=== PATIENT | male | born 1965 ===

== ENCOUNTER 2024-09-25 01:33 | Emergency (ER) | payer OTHER ==
--- OUTSIDE RECORDS SUMMARY | 2024-09-25 01:38 | XMS REPORT | Continuity of Care Document ---
Author Name Unknown Address [address] [address] [address] [place] [address] Organization [facility] [place] Address [address] [facility] [address] [place] [address] Care Team Providers Care Sensor Technician Name Role Phone Rolando Joyner Attending Clinician Unavailable Danuta Landrum Attending Clinician Unavailable Alexandra Gustafson Attending Clinician Unavailable Payers Payer Name Policy Type Policy Number Effective Date Expirati on Date Source [employer] 53 [id number] 2019 00:00:00 [facility] Problems Condition Name Condition Details Condition Category Status Onset Date Resolution Date Last Treatment Date Treating Clinician Comments Source [id number] Body mass index [BMI] 35.0-35.9, adult Problem [facility] [id number] Morbid (severe) obesity due to excess calories Problem [facility] Polyp colon Colon polyp Problem [facility] Fatigue Fatigue Problem [facility] Obese Obese Problem [facility] History of polyp of colon H/O adenomatou s polyp of colon Problem [facility] [id number] Type 2 diabetes mellitus with hyperglyce steven, without long-term current use of insulin Problem [facility] Essential hypertensi on Essential hypertensi on Problem [facility] [id number] Tinnitus of both ears Problem [facility] [id number] Post herpetic neuralgia Problem [facility] [id number] Erectile dysfunctio n, unspecifie d erectile dysfunctio n type Problem [facility] [id number] BPH loc w urin obs/LUTS Problem [facility] [id number] Primary osteoarthr itis of left shoulder Problem [facility] [id number] Mixed hyperlipid emia Problem [facility] [id number] Degenerati ve disc disease, lumbar Problem [facility] [id number] Other chronic pain Problem [facility] Elevated PSA Elevated PSA Problem [facility] [id number] Incomplete emptying of bladder Problem [facility] [id number] Bilateral low back pain with right-side d sciatica, unspecifie d chronicity Problem [facility] [id number] Primary osteoarthr itis of right shoulder Problem [facility] Social History Social Habit Start Date Stop Date Quantity Comments Source History of Tobacco Use [facility] Sex Assigned At [facility] Smoking Status Start Date Stop Date Source Never Smoker [facility] Medications Ordered Medication Name Filled Medication Name Start Date Stop Date Current Medication? Ordering Clinician Indication Dosage Frequency Signature (SIG) Comments Components Source Flomax 0.4 MG Flomax 0.4 MG 07-31 00:00: 00 07-26 00:00 :00 No 2{capsu les} QD Flomax 0.4 MG Kenalog (Triamcinol one) Kenalog (Triamcinol one) 2020-06 007 00:00: 00 No 40mg [facility] Lisinopril 20 MG Lisinopril 20 MG No 1{table t} QD Lisinopril 20 MG Gabapentin 300 MG Gabapentin 300 MG No 1{capsu le} BID Gabapentin 300 MG Meloxicam 7.5 MG Meloxicam 7.5 MG No QD Meloxicam 7.5 MG Multivitami n - Multivitami n - No 1{table t} QD Multivitam in - Immunizations Ordered Immunization Name Filled Immunization Name Date Status Comments Source Kenalog (Triamcinolone) Kenalog (Triamcinolone) 2021-03-07 10:10:00 Completed [facility] Afluria Afluria 2021-02-22 11:13:00 Completed [facility] Afluria Afluria 2021-02-22 11:13:00 Completed [facility] Afluria Afluria 2021-02-22 11:13:00 Completed [facility] Afluria Afluria 2021-02-22 11:13:00 Completed [facility] Shingrix Shingrix 2020-05-17 16:48:00 Completed [facility] Shingrix Shingrix 2020-05-17 16:48:00 Completed [facility] Shingrix Shingrix 2020-05-17 16:48:00 Completed [facility] Shingrix Shingrix 2020-05-17 16:48:00 Completed [facility] Shingrix Shingrix 2020-02-28 11:36:00 Completed [facility] Shingrix Shingrix 2020-02-28 11:36:00 Completed [facility] Shingrix Shingrix 2020-02-28 11:36:00 Completed [facility] Shingrix Shingrix 2020-02-28 11:36:00 Completed [facility] Fluarix (IIV4) - SDS - 0.5mL Fluarix (IIV4) - SDS - 0.5mL 2020-02-28 11:35:00 Completed [facility] Afluria single dose Afluria single dose 11:35:00 Completed [facility] Afluria single dose Afluria single dose 11:35:00 Completed [facility] Afluria single dose Afluria single dose 11:35:00 Completed [facility] Afluria single dose Afluria single dose Unknown Completed [facility] Shingrix Shingrix Unknown Completed [facility] Afluria Afluria Unknown Completed [facility] Afluria (IIV4) - 3 years and older - SDS - 0.5mL Afluria (IIV4) - 3 years and older - SDS - 0.5mL Unknown Completed [facility] Shingrix Shingrix Unknown Completed [facility] Afluria Afluria Unknown Completed [facility] Afluria (IIV4) - 3 years and older - SDS - 0.5mL Afluria (IIV4) - 3 years and older - SDS - 0.5mL Unknown Completed [facility] Shingrix Shingrix Unknown Completed [facility] Afluria Afluria Unknown Completed [facility] Afluria (IIV4) - 3 years and older - SDS - 0.5mL Afluria (IIV4) - 3 years and older - SDS - 0.5mL Unknown Completed [facility] Shingrix Shingrix Unknown Completed [facility] Afluria Afluria Unknown Completed [facility] Boostrix (Tdap) Boostrix (Tdap) Unknown Completed [facility] Vital Signs Vital Name Observation Time Observation Value Comments S ource height 2024-06-29 10:00:00 67.25 [in_i] Com mon [facility] weight 2024-06-29 10:00:00 232.4 [lb_av] Co mmon [facility] temperature 2024-06-29 10:00:00 97.2 [degF] Com [facility] bmi 2024-06-29 10:00:00 36.12 kg/m2 Comm on [facility] oximetry 2024-06-29 10:00:00 96 % Commo n [facility] respiratory rate 2024-06-29 10:00:00 16 /min [facility] blood pressure systolic 2024-06-29 10:00:00 130 mm[Hg] Common [facility] blood pressure diastolic 2024-06-29 10:00:00 88 mm[Hg] [facility] height 2024-03-11 09:45:00 67.25 [in_i] Com [facility] weight 2024-03-11 09:45:00 228.4 [lb_av] Co [facility] temperature 2024-03-11 09:45:00 98 [degF] Comm on [facility] bmi 2024-03-11 09:45:00 35.5 kg/m2 Commo n [facility] oximetry 2024-03-11 09:45:00 94 % Commo n [facility] blood pressure systolic 2024-03-11 09:45:00 132 mm[Hg] Common [facility] blood pressure diastolic 2024-03-11 09:45:00 76 mm[Hg] [facility] height 2024-03-11 09:45:00 67.25 [in_i] Com [facility] weight 2024-03-11 09:45:00 228.4 [lb_av] Co [facility] temperature 2024-03-11 09:45:00 98 [degF] Comm on [facility] bmi 2024-03-11 09:45:00 35.5 kg/m2 Commo n [facility] oximetry 2024-03-11 09:45:00 94 % Commo n [facility] blood pressure systolic 2024-03-11 09:45:00 132 mm[Hg] [facility] blood pressure diastolic 2024-03-11 09:45:00 76 mm[Hg] [facility] height 2023-09-10 08:10:00 67.25 [in_i] Com [facility] weight 2023-09-10 08:10:00 231 [lb_av] Comm on [facility] temperature 2023-09-10 08:10:00 97.9 [degF] Com [facility] bmi 2023-09-10 08:10:00 35.91 kg/m2 Comm on [facility] oximetry 2023-09-10 08:10:00 95 % Commo n [facility] blood pressure systolic 2023-09-10 08:10:00 134 mm[Hg] [facility] blood pressure diastolic 2023-09-10 08:10:00 76 mm[Hg] [facility] height 2023-06-05 08:20:00 67.25 [in_i] Com [facility] weight 2023-06-05 08:20:00 231.0 [lb_av] Co [facility] temperature 2023-06-05 08:20:00 97.9 [degF] Com [facility] bmi 2023-06-05 08:20:00 35.91 kg/m2 Comm on [facility] oximetry 2023-06-05 08:20:00 96 % Commo n [facility] respiratory rate 2023-06-05 08:20:00 17 /min [facility] blood pressure systolic 2023-06-05 08:20:00 120 mm[Hg] [facility] blood pressure diastolic 2023-06-05 08:20:00 76 mm[Hg] [facility] height 2023-03-05 09:00:00 67.25 [in_i] Com [facility] weight 2023-03-05 09:00:00 231.0 [lb_av] Co [facility] temperature 2023-03-05 09:00:00 97.2 [degF] Com [facility] bmi 2023-03-05 09:00:00 35.91 kg/m2 Comm on [facility] oximetry 2023-03-05 09:00:00 97 % Commo n [facility] respiratory rate 2023-03-05 09:00:00 18 /min Common [facility] blood pressure systolic 2023-03-05 09:00:00 119 mm[Hg] [facility] blood pressure diastolic 2023-03-05 09:00:00 73 mm[Hg] [facility] height 2022-12-09 11:00:00 67.25 [in_i] Com [facility] weight 2022-12-09 11:00:00 228.4 [lb_av] Co mmon [facility] temperature 2022-12-09 11:00:00 97.7 [degF] Com [facility] bmi 2022-12-09 11:00:00 35.5 kg/m2 Commo n [facility] oximetry 2022-12-09 11:00:00 97 % Commo n [facility] respiratory rate 2022-12-09 11:00:00 18 /min [facility] blood pressure systolic 2022-12-09 11:00:00 125 mm[Hg] [facility] blood pressure diastolic 2022-12-09 11:00:00 86 mm[Hg] Common [facility] height 2022-01-31 13:20:00 67.25 [in_i] Com [facility] weight 2022-01-31 13:20:00 226 [lb_av] Comm on [facility] temperature 2022-01-31 13:20:00 97.7 [degF] Com [facility] bmi 2022-01-31 13:20:00 35.13 kg/m2 Comm on [facility] oximetry 2022-01-31 13:20:00 96 % Commo n [facility] respiratory rate 2022-01-31 13:20:00 15 /min Common [facility] blood pressure systolic 2022-01-31 13:20:00 128 mm[Hg] Common [facility] blood pressure diastolic 2022-01-31 13:20:00 80 mm[Hg] [facility] height 2021-11-01 16:20:00 67 [in_i] Commo n [facility] weight 2021-11-01 16:20:00 222.4 [lb_av] Co mmon [facility] temperature 2021-11-01 16:20:00 97.6 [degF] Com mon [facility] bmi 2021-11-01 16:20:00 34.83 kg/m2 Comm on [facility] oximetry 2021-11-01 16:20:00 97 % Commo n [facility] respiratory rate 2021-11-01 16:20:00 15 /min Common [facility] blood pressure systolic 2021-11-01 16:20:00 128 mm[Hg] [facility] blood pressure diastolic 2021-11-01 16:20:00 80 mm[Hg] [facility] height 2021-07-31 08:30:00 67 [in_i] Commo n [facility] weight 2021-07-31 08:30:00 227.6 [lb_av] Co mmon [facility] temperature 2021-07-31 08:30:00 97.6 [degF] Com mon [facility] bmi 2021-07-31 08:30:00 35.64 kg/m2 Comm on [facility] oximetry 2021-07-31 08:30:00 97 % Commo n [facility] respiratory rate 2021-07-31 08:30:00 18 /min [facility] blood pressure systolic 2021-07-31 08:30:00 135 mm[Hg] [facility] blood pressure diastolic 2021-07-31 08:30:00 87 mm[Hg] Common [facility] height 2021-05-21 11:20:00 67 [in_i] Commo n [facility] weight 2021-05-21 11:20:00 231 [lb_av] Comm on [facility] temperature 2021-05-21 11:20:00 97.7 [degF] Com mon [facility] bmi 2021-05-21 11:20:00 36.18 kg/m2 Comm on [facility] oximetry 2021-05-21 11:20:00 99 % Commo n [facility] blood pressure systolic 2021-05-21 11:20:00 128 mm[Hg] Common [facility] blood pressure diastolic 2021-05-21 11:20:00 88 mm[Hg] Common [facility] height 2021-03-25 08:00:00 67 [in_i] Commo n [facility] weight 2021-03-25 08:00:00 227 [lb_av] Comm on [facility] bmi 2021-03-25 08:00:00 35.55 kg/m2 Comm on [facility] blood pressure systolic 2021-03-25 08:00:00 110 mm[Hg] Common [facility] blood pressure diastolic 2021-03-25 08:00:00 74 mm[Hg] [facility] bmi 2021-03-07 09:40:00 35.64 kg/m2 Comm on [facility] oximetry 2021-03-07 09:40:00 99 % Commo n [facility] respiratory rate 2021-03-07 09:40:00 15 /min Common [facility] blood pressure systolic 2021-03-07 09:40:00 119 mm[Hg] [facility] blood pressure diastolic 2021-03-07 09:40:00 73 mm[Hg] [facility] height 2021-03-07 09:40:00 67 [in_i] Commo n [facility] weight 2021-03-07 09:40:00 227.6 [lb_av] Co mmon [facility] temperature 2021-03-07 09:40:00 97.3 [degF] Com mon [facility] height 2021-02-22 09:40:00 67 [in_i] Commo n [facility] weight 2021-02-22 09:40:00 237 [lb_av] Comm on [facility] temperature 2021-02-22 09:40:00 97.8 [degF] Com mon [facility] bmi 2021-02-22 09:40:00 37.12 kg/m2 Comm on [facility] oximetry 2021-02-22 09:40:00 97 % Commo n [facility] respiratory rate 2021-02-22 09:40:00 16 /min [facility] blood pressure systolic 2021-02-22 09:40:00 121 mm[Hg] Common [facility] blood pressure diastolic 2021-02-22 09:40:00 73 mm[Hg] [facility] Encounters Start Date/Time End Date/Time Encounter Type Admission Type Attending [facility] Care Facility Care Department Encounter ID Source 2024-03-09 10:24:00 [facility] [id number] [facility] 2023-03-04 12:37:00 [facility] [id number] [facility] 2022-12-01 15:27:00 [facility] [id number] [facility] 2022-11-04 17:05:00 [facility] [id number] [facility] 2022-05-15 08:31:00 Outpatient Gustafson, Na [facility] [id number] [facility] 2022-01-29 10:11:00 Outpatient Gustafson, Na [facility] [id number] [facility] 2021-10-30 09:36:00 Outpatient Gustafson, Na [facility] [id number] [facility] 2021-06-26 14:03:02 Outpatient Gustafson, Na [facility] [id number] [facility] 2021-06-26 13:54:41 Outpatient Gustafson, Na [facility] [id number] [facility] 2021-06-26 13:53:18 Outpatient Gustafson, Na [facility] [id number] [facility] 2021-06-26 13:18:04 Outpatient Gustafson, Na [facility] [id number] [facility] 2021-06-26 13:05:26 Outpatient Gustafson, Na [facility] [id number] [facility] 2021-06-26 12:17:19 Outpatient Gustafson, Na [facility] [id number] [facility] 2021-06-26 12:14:45 Outpatient Gustafson, Na [facility] [id number] [facility] 2021-06-26 11:49:10 Outpatient Gustafson, Na [facility] [id number] [facility] 2021-06-26 11:12:29 Outpatient Gustafson, Na [facility] [id number] [facility] 2021-06-26 11:07:49 Outpatient Gustafson, Na [facility] [id number] [facility] 2024-06-29 00:00:00 2024-06-29 00:00:00 (WELLNESS) Wellness Visit [facility] [id number] [facility] 2024-03-11 00:00:00 2024-03-11 00:00:00 OFFICE VISIT ESTAB PT LEVEL 4 [facility] [id number] [facility] 2023-09-10 00:00:00 2023-09-10 00:00:00 OFFICE VISIT ESTAB PT LEVEL 4 [facility] [id number] [facility] 2023-06-05 00:00:00 2023-06-05 00:00:00 PREV VISIT EST AGE 40-64 [facility] [id number] [facility] 2023-03-05 00:00:00 2023-03-05 00:00:00 OFFICE VISIT ESTAB PT LEVEL 4 [facility] [id number] [facility] 2022-12-09 00:00:00 2022-12-09 00:00:00 OFFICE VISIT ESTAB PT LEVEL 4 [facility] [id number] [facility] 2022-11-04 00:00:00 2022-11-04 00:00:00 (TEL) [facility] [id number] [facility] 2022-05-19 00:00:00 2022-05-19 00:00:00 OFFICE VISIT ESTAB PT LEVEL 4 [facility] [id number] [facility] 2022-01-31 00:00:00 2022-01-31 00:00:00 OFFICE VISIT ESTAB PT LEVEL 4 [facility] [id number] [facility] 2021-11-01 00:00:00 2021-11-01 00:00:00 OFFICE VISIT ESTAB PT LEVEL 4 [facility] [id number] [facility] 2021-10-16 00:00:00 2021-10-16 00:00:00 (TEL) [facility] [id number] [facility] 2021-07-31 00:00:00 2021-07-31 00:00:00 OFFICE VISIT EST PT LEVEL 3 [facility] [id number] [facility] 2021-07-25 00:00:00 2021-07-25 00:00:00 (TEL) [facility] [id number] [facility] 2021-06-18 00:00:00 2021-06-18 00:00:00 (TEL) [facility] [id number] [facility] 2021-05-21 00:00:00 2021-05-21 00:00:00 OFFICE VISIT ESTAB PT LEVEL 4 [facility] [id number] [facility] 2021-04-03 00:00:00 2021-04-03 00:00:00 (TEL) [facility] [id number] [facility] 2021-03-25 00:00:00 2021-03-25 00:00:00 CONSULT - OFFICE, L4 [facility] [id number] [facility] 2021-03-07 00:00:00 2021-03-07 00:00:00 OFFICE VISIT EST PT LEVEL 3 [facility] [id number] [facility] 2021-02-22 00:00:00 2021-02-22 00:00:00 OFFICE VISIT ESTAB PT LEVEL 4 [facility] [id number] [facility] 2020-11-22 00:00:00 2020-11-22 00:00:00 Outpatient [facility] [id number] [facility] 2020-08-16 00:00:00 2020-08-16 00:00:00 Outpatient [facility] [id number] [facility] 2020-07-30 00:00:00 2020-07-30 00:00:00 Outpatient [facility] [id number] [facility] 2020-06-04 00:00:00 2020-06-04 00:00:00 Outpatient [facility] [id number] [facility] 2020-05-17 00:00:00 2020-05-17 00:00:00 Outpatient [facility] [id number] [facility] 2020-04-01 00:00:00 2020-04-01 00:00:00 Outpatient [facility] [id number] [facility] 2020-02-28 00:00:00 2020-02-28 00:00:00 Outpatient [facility] [id number] [facility] 2020-02-15 00:00:00 2020-02-15 00:00:00 Outpatient [facility] [id number] [facility] 2019-08-08 15:26:00 2019-08-08 15:26:00 Outpatient [facility] [id number] [facility] 2019-08-05 15:20:00 2019-08-05 15:20:00 Outpatient [facility] [id number] [facility] Results Test Description Test Time Test Comments Results Result Co mments Source COMPREHENSIVE METABOLIC [id number] 00:00:00* Test Item Value Reference Range Interpretation Comme nts HEMOGLOBIN A1c (test code = 4548-4) 6.3 % See_Comment H [Automated [employer]] The system which generated this result transmitted reference range: 4.2-5.6 %. The reference range was not used to interpret this result as normal/abnormal. NUCLEATED RBCS (test code = 94247-8) 0.0 /100 WBC'S See_Comment [Automated message] The system which generated this result transmitted reference range: 0.0 /100 WBC'S. The reference range was not used to interpret this result as normal/abnormal. ABSOLUTE EOSINOPHILS (test code = 29132-7) 0.59 K/UL See_Comment H [Automated message] The system which generated this result transmitted reference range: 0.00-0.50 K/UL. The reference range was not used to interpret this result as normal/abnormal. ABSOLUTE LYMPHOCYTES (test code = 49769-1) 1.52 K/UL See_Comment [Automated message] The system which generated this result transmitted reference range: 1.00-4.00 K/UL. The reference range was not used to interpret this result as normal/abnormal. ABSOLUTE MONOCYTES (test code = 41165-9) 0.56 K/UL See_Comment [Automated message] The system which generated this result transmitted reference range: 0.20-1.00 K/UL. The reference range was not used to interpret this result as normal/abnormal. ABSOLUTE NEUTROPHILS (test code = 32500-4) 2.99 K/UL See_Comment [Automated message] The system which generated this result transmitted reference range: 1.50-7.50 K/UL. The reference range was not used to interpret this result as normal/abnormal. BASOPHILS (test code = 50025-7) 0.9 % EOSINOPHILS (test code = 22438-0) 10.3 % HEMATOCRIT (test code = 71979-6) 45.6 % See_Comment [Automated messa ge] The system which generated this result transmitted reference range: 40.0-51.0 %. The reference range was not used to interpret this result as normal/abnormal. HEMOGLOBIN (test code = 718-7) 15.4 G/DL See_Comment [Automated messa ge] The system which generated this result transmitted reference range: 13.5-17.0 G/DL. The reference range was not used to interpret this result as normal/abnormal. LYMPHOCYTES (test code = 31103-2) 26.6 % MCH (test code = 47237-9) 32.8 PG See_Comment [Automated messa ge] The system which generated this result transmitted reference range: 25.0-33.0 PG. The reference range was not used to interpret this result as normal/abnormal. MCHC (test code = 47334-0) 33.8 G/DL See_Comment [Automated messa ge] The system which generated this result transmitted reference range: 31.0-36.0 G/DL. The reference range was not used to interpret this result as normal/abnormal. MCV (test code = 31130-2) 97.0 fL See_Comment [Automated messa ge] The system which generated this result transmitted reference range: 80.0-99.0 fL. The reference range was not used to interpret this result as normal/abnormal. MONOCYTES (test code = 67254-6) 9.8 % NEUTROPHILS (test code = 56511-2) 52.2 % PLATELET COUNT (test code = 66541-7) 240 K/UL See_Comment [Automated PeopleDoca ge] The system which generated this result transmitted reference range: 130-400 K/UL. The reference range was not used to interpret this result as normal/abnormal. RBC (test code = 40248-4) 4.70 M/UL See_Comment [Automated PeopleDoca ge] The system which generated this result transmitted reference range: 4.50-6.10 M/UL. The reference range was not used to interpret this result as normal/abnormal. RDW (test code = 34677-6) 12.3 % See_Comment [Automated PeopleDoca ge] The system which generated this result transmitted reference range: 11.5-15.0 %. The reference range was not used to interpret this result as normal/abnormal. WBC (test code = 39186-9) 5.7 K/UL See_Comment [Automated PeopleDoca ge] The system which generated this result transmitted reference range: 3.5-11.0 K/UL. The reference range was not used to interpret this result as normal/abnormal. CALC LDL CHOL (test code = 40477-1) 127 MG/DL See_Comment H [Automated PeopleDoca ge] The system which generated this result transmitted reference range: <100 MG/DL. The reference range was not used to interpret this result as normal/abnormal. CHOLESTEROL (test code = 2093-3) 191 MG/DL See_Comment [Automated PeopleDoca ge] The system which generated this result transmitted reference range: <200 MG/DL. The reference range was not used to interpret this result as normal/abnormal. HDL CHOLESTEROL (test code = 2085-9) 42 MG/DL See_Comment [Automated PeopleDoca ge] The system which generated this result transmitted reference range: >39 MG/DL. The reference range was not used to interpret this result as normal/abnormal. RISK RATIO LDL/HDL (test code = 15495-7) 3.02 RATIO See_Comment [Automated message] The system which generated this result transmitted reference range: <3.55 RATIO. The reference range was not used to interpret this result as normal/abnormal. TRIGLYCERIDES (test code = 2571-8) 111 MG/DL See_Comment [Automated messa ge] The system which generated this result transmitted reference range: <150 MG/DL. The reference range was not used to interpret this result as normal/abnormal. ALBUMIN (test code = 1751-7) 4.4 G/DL See_Comment [Automated messa ge] The system which generated this result transmitted reference range: 3.5-5.2 G/DL. The reference range was not used to interpret this result as normal/abnormal. ALKALINE PHOSPHATASE (test code = 6768-6) 78 U/L See_Comment [Automated message] The system which generated this result transmitted reference range: 40-123 U/L. The reference range was not used to interpret this result as normal/abnormal. BILIRUBIN, TOTAL (test code = 1975-2) 0.6 MG/DL See_Comment [Automated messa ge] The system which generated this result transmitted reference range: <=1.2 MG/DL. The reference range was not used to interpret this result as normal/abnormal. BUN (test code = 3094-0) 13 MG/DL See_Comment [Automated messa ge] The system which generated this result transmitted reference range: 6-20 MG/DL. The reference range was not used to interpret this result as normal/abnormal. CALCIUM (test code = 61675-8) 9.4 MG/DL See_Comment [Automated messa ge] The system which generated this result transmitted reference range: 8.5-10.5 MG/DL. The reference range was not used to interpret this result as normal/abnormal. CALC A/G RATIO (test code = 1759-0) 1.6 RATIO See_Comment [Automated messa ge] The system which generated this result transmitted reference range: 1.0-2.6 RATIO. The reference range was not used to interpret this result as normal/abnormal. CALC BUN/CREAT (test code = 3097-3) 12 RATIO See_Comment [Automated messa ge] The system which generated this result transmitted reference range: 6-28 RATIO. The reference range was not used to interpret this result as normal/abnormal. CALC GLOBULIN (test code = 15511-7) 2.8 G/DL See_Comment [Automated messa ge] The system which generated this result transmitted reference range: 1.9-3.7 G/DL. The reference range was not used to interpret this result as normal/abnormal. CARBON DIOXIDE (test code = 1962-8) 27 MEQ/L See_Comment [Automated messa ge] The system which generated this result transmitted reference range: 19-31 MEQ/L. The reference range was not used to interpret this result as normal/abnormal. CHLORIDE (test code = 5-0) 102 MEQ/L See_Comment [Automated messa ge] The system which generated this result transmitted reference range: 95-107 MEQ/L. The reference range was not used to interpret this result as normal/abnormal. CREATININE (test code = 2160-0) 1.08 MG/DL See_Comment [Automated messa ge] The system which generated this result transmitted reference range: 0.80-1.40 MG/DL. The reference range was not used to interpret this result as normal/abnormal. eGFR (2020 CKD-EPI) (test code = 67956-1) 80 ML/MIN/1.73 See_Comment [Automated message] The system which generated this result transmitted reference range: >60 ML/MIN/1.73. The reference range was not used to interpret this result as normal/abnormal. GLUCOSE (test code = 1558-6) 104 MG/DL See_Comment H [Automated messa ge] The system which generated this result transmitted reference range: 70-99 MG/DL. The reference range was not used to interpret this result as normal/abnormal. POTASSIUM (test code = 2823-3) 4.4 MEQ/L See_Comment [Automated messa ge] The system which generated this result transmitted reference range: 3.5-5.4 MEQ/L. The reference range was not used to interpret this result as normal/abnormal. PROTEIN, TOTAL (test code = 2885-2) 7.2 G/DL See_Comment [Automated messa ge] The system which generated this result transmitted reference range: 6.1-8.3 G/DL. The reference range was not used to interpret this result as normal/abnormal. AST (test code = 1920-8) 15 U/L See_Comment [Automated messa ge] The system which generated this result transmitted reference range: 9-50 U/L. The reference range was not used to interpret this result as normal/abnormal. ALT (test code = 1742-6) 19 U/L See_Comment [Automated messa ge] The system which generated this result transmitted reference range: 5-50 U/L. The reference range was not used to interpret this result as normal/abnormal. SODIUM (test code = 2951-2) 138 MEQ/L See_Comment [Automated messa ge] The system which generated this result transmitted reference range: 133-146 MEQ/L. The reference range was not used to interpret this result as normal/abnormal. CBC W/AUTO [id number] 00:00:00* Test Item Value Reference Range Interpretation Comme nts NUCLEATED RBCS (test code = 11546-6) 0.0 /100 WBC'S See_Comment [Automated messa ge] The system which generated this result transmitted reference range: 0.0 /100 WBC'S. The reference range was not used to interpret this result as normal/abnormal. ABSOLUTE EOSINOPHILS (test code = 20136-5) 0.34 K/UL See_Comment [Automated messa ge] The system which generated this result transmitted reference range: 0.00-0.50 K/UL. The reference range was not used to interpret this result as normal/abnormal. ABSOLUTE LYMPHOCYTES (test code = 09526-7) 1.41 K/UL See_Comment [Automated messa ge] The system which generated this result transmitted reference range: 1.00-4.00 K/UL. The reference range was not used to interpret this result as normal/abnormal. ABSOLUTE MONOCYTES (test code = 98129-9) 0.60 K/UL See_Comment [Automated messa ge] The system which generated this result transmitted reference range: 0.20-1.00 K/UL. The reference range was not used to interpret this result as normal/abnormal. ABSOLUTE NEUTROPHILS (test code = 37385-8) 2.39 K/UL See_Comment [Automated messa ge] The system which generated this result transmitted reference range: 1.50-7.50 K/UL. The reference range was not used to interpret this result as normal/abnormal. BASOPHILS (test code = 74355-7) 1.2 % EOSINOPHILS (test code = 48672-2) 7.0 % HEMATOCRIT (test code = 98536-4) 45.9 % See_Comment [Automated messa ge] The system which generated this result transmitted reference range: 40.0-51.0 %. The reference range was not used to interpret this result as normal/abnormal. HEMOGLOBIN (test code = 718-7) 15.8 G/DL See_Comment [Automated messa ge] The system which generated this result transmitted reference range: 13.5-17.0 G/DL. The reference range was not used to interpret this result as normal/abnormal. LYMPHOCYTES (test code = 17027-9) 28.9 % MCH (test code = 67006-2) 32.8 PG See_Comment [Automated messa ge] The system which generated this result transmitted reference range: 25.0-33.0 PG. The reference range was not used to interpret this result as normal/abnormal. MCHC (test code = 29401-3) 34.4 G/DL See_Comment [Automated messa ge] The system which generated this result transmitted reference range: 31.0-36.0 G/DL. The reference range was not used to interpret this result as normal/abnormal. MCV (test code = 88154-4) 95.2 fL See_Comment [Automated messa ge] The system which generated this result transmitted reference range: 80.0-99.0 fL. The reference range was not used to interpret this result as normal/abnormal. MONOCYTES (test code = 48413-5) 12.3 % NEUTROPHILS (test code = 17651-2) 49.0 % PLATELET COUNT (test code = 35012-4) 228 K/UL See_Comment [Automated messa ge] The system which generated this result transmitted reference range: 130-400 K/UL. The reference range was not used to interpret this result as normal/abnormal. RBC (test code = 90081-3) 4.82 M/UL See_Comment [Automated messa ge] The system which generated this result transmitted reference range: 4.50-6.10 M/UL. The reference range was not used to interpret this result as normal/abnormal. RDW (test code = 80604-7) 12.1 % See_Comment [Automated messa ge] The system which generated this result transmitted reference range: 11.5-15.0 %. The reference range was not used to interpret this result as normal/abnormal. WBC (test code = 96691-3) 4.9 K/UL See_Comment [Automated messa ge] The system which generated this result transmitted reference range: 3.5-11.0 K/UL. The reference range was not used to interpret this result as normal/abnormal.
[2024-09-25 02:21] LABS: Specific Gravity 1.009 (1.005-1.030); Sqamous Epithelial None Seen /HPF (None Seen); Urine Bacteria None Seen /HPF (<20); Urine Bilirubin NEGATIVE (Negative); Urine Blood 3+ (OVER) (Negative); Urine Clarity Extremely Turbid (Clear); Urine Color Red (Yellow); Urine Glucose NEGATIVE (Negative); Urine Ketones NEGATIVE (Negative); Urine Micro Reflex YN NO BILL NO MICROSCOPIC; Urine Nitrite NEGATIVE (Negative); Urine Protein 2+ (Negative); Urine RBC >50 /HPF (None Seen); Urine Urobilinogen Normal (Normal); Urine WBC >50 /HPF (<5)
[2024-09-25 02:29] LABS: Absolute Eosinophils 0.3 K/uL (0-0.5); Absolute Lymphocytes (CBC) 1.7 K/uL (0.7-4.9); Absolute Monocytes 0.6 K/uL (0.1-1.3); Absolute Neutrophil 2.8 K/uL (1.8-8.0); Basophils % 0.9 % (0-1.3); Eosinophils % 5.9 % (0-4.4); Hematocrit 43.1 % (39.6-49.0); Lymphocytes % 30.9 % (15.3-44.8); MCHC 34.9 g/dL (32.0-36.0); MCV 94.5 fL (80-100); MPV 8.5 fL (7.6-11.3); Monocytes % 11.8 % (3.3-12.3); Neutrophils % 50.5 % (41.7-73.7); Nucleated Red Blood Cells % 0.1 % (0-0); Platelets 223 thou/uL (152-406); RBC Red Blood Cell Count 4.56 M/uL (4.33-5.43); Red Cell Distribution Width 13.5 % (12.1-15.2)
[2024-09-25 02:38] LABS: Albumin 3.7 g/dL (3.4-5.0); Albumin/Globulin Ratio 1.1 (1.1-1.8); Anion Gap 7.4 mEq/L (5.0-15.0); Bilirubin Total 0.3 mg/dL (0.2-1.0); Globulin 3.4 g/dL (2.3-3.5); Potassium 3.4 mEq/L (3.5-5.1); Protein, Total 7.1 g/dL (6.4-8.2)
--- NOTE | 2024-09-25 03:31 | ER ---
Nurse's Notes [facility] Name: Cem Foley Age: 59 yrs Sex: Male : 1965 Arrival Date: 09/25/2024 Time: 01:33 Bed 7 Private MD: Diagnosis: Gross hematuria Presentation: 09/25 01:42 Chief complaint: Patient states: BLOOD IN THE URINE SINCE YESTERDAY MORNING. ha1 01:42 Coronavirus screen: Client denies travel out of the [place] in the last 14 days. Ebola ha1 Screen: No symptoms or risks identified at this time. Initial Sepsis Screen: Does the patient meet any 2 criteria? No. Patient's initial sepsis screen is negative. Does the patient have a suspected source of infection? No. Patient's initial sepsis screen is negative. Risk Assessment: Do you want to hurt yourself or someone else? Patient reports no desire to harm self or others. Onset of symptoms was September 25, 2024. 01:42 Method Of Arrival: Ambulatory ha1 01:42 Acuity: ANDRES 3 ha1 Triage Assessment: 01:42 General: Appears comfortable, Behavior is calm, cooperative. Pain: Denies pain. Neuro: ha1 Level of Consciousness is awake, alert, obeys commands, Oriented to person, place, time, situation. Cardiovascular: Capillary refill < 3 seconds Patient's skin is warm and dry. Respiratory: Airway is patent Respiratory effort is even, unlabored, Respiratory pattern is regular, symmetrical. GI: No signs and/or symptoms were reported involving the gastrointestinal system. Abdomen is round non-distended. : Reports BLOOD IN URINE WITH CLOTS. Derm: Skin is healthy with good turgor, Skin is moist, Skin is normal. Musculoskeletal: Circulation, motion, and sensation intact. Range of motion: intact in all extremities. Historical: - Allergies: : No Known Allergies; ha1 - Home Meds: : Flomax Oral [Active]; ha1 - PMHx: :42 Hypertensive disorder; ENLARGE PROSTATE; ha1 - PSHx: :42 None; ha1 - Immunization history:: Adult Immunizations up to date. - Infectious Disease History:: Denies. - Social history:: Smoking status: Patient reports the use of cigarette tobacco products, denies chronic smoking, but will smoke occasionally. - Family history:: not pertinent. Screenin:03 [facility] ED Fall Risk Assessment (Adult) History of falling in the last 3 months, ha1 including since admission No falls in past 3 months (0 pts) Confusion or Disorientation No (0 pts) Intoxicated or Sedated No (0 pts) Impaired Gait No (0 pts) Mobility Assist Device Used No (0 pt) Altered Elimination No (0 pt) Score/Fall Risk Level 0 - 2 = Low Risk Oriented to surroundings, Maintained a safe environment, Educated pt \T\ family on fall prevention, incl call for assistance when getting out of bed, Hourly rounding (assess needs \T\ fall precautionary measures) done. Abuse screen: Denies threats or abuse. Denies injuries from another. Nutritional screening: No deficits noted. Tuberculosis screening: No symptoms or risk factors identified. Assessment: 02:16 General: Appears in no apparent distress. Behavior is calm, cooperative, appropriate dd2 for age. Pain: Denies pain. Neuro: Level of Consciousness is awake, alert, obeys commands, Oriented to person, place, time, situation, Appropriate for age. Cardiovascular: No deficits noted. JVD is absent Patient's skin is warm and dry. Respiratory: Airway is patent Respiratory effort is even, unlabored, Respiratory pattern is regular, symmetrical. GI: Abdomen is non-distended, obese, Bowel sounds present X 4 quads. Abd is soft and non tender X 4 quads. Patient currently denies abdominal pain, nausea, vomiting. : Urine is stevie blood, BLOODY CLOTS NOTED Reports urgency, BLOODY URINATION. EENT: No deficits noted. No signs and/or symptoms were reported regarding the EENT system. Derm: No deficits noted. No signs and/or symptoms reported regarding the dermatologic system. Musculoskeletal: No deficits noted. No signs and/or symptoms reported regarding the musculoskeletal system. Circulation, motion, and sensation intact. Range of motion: intact in all extremities. Vital Signs: 01:42 BP 161 / 100; Pulse 80; Resp 16 S; Temp 98.1(O); Pulse Ox 100% on R/A; Weight 74.84 kg; ha1 Height 5 ft. 9 in. ; 02:30 BP 141 / 94; Pulse 83; Resp 16; Pulse Ox 100% on R/A; dd2 03:37 BP 146 / 87; Pulse 81; Resp 17; Temp 98.3; Pulse Ox 99% on R/A; dd2 01:42 Body Mass Index 24.37 (74.84 kg, 175.26 cm) ha1 Bo Coma Score: 02:16 Eye Response: spontaneous(4). Motor Response: obeys commands(6). Verbal Response: dd2 oriented(5). Total: 15. ED Course: 01:39 Patient arrived in ED. gm2 01:41 Bertram Granados MD is Attending Physician. rt 01:57 Triage completed. ha1 02:13 CBC with Diff Sent. vk 02:13 CMP Sent. vk 02:13 UAM Sent. vk 02:13 Initial lab(s) drawn, by me, sent to lab. Urine collected: clean catch specimen, blood vk tinged. Inserted saline lock: 20 gauge in right antecubital area, using aseptic technique. Blood collected. Flushed with 10 mL NS. 02:15 UAM Sent. vk 02:16 LOLITA ANDERSON RN is Primary Nurse. dd2 02:16 No provider procedures requiring assistance completed. Patient maintains SpO2 dd2 saturation greater than 95% on room air. 02:16 Patient has correct armband on for positive identification. Bed in low position. Call dd2 light in reach. Side rails up X 1. Client placed on continuous cardiac and pulse oximetry monitoring. NIBP monitoring applied. Door closed. Noise minimized. Pillow given. Verbal reassurance given. 03:37 IV discontinued, intact, bleeding controlled, No redness/swelling at site. Pressure dd2 dressing applied. 03:37 Provided Education on: D/C AND MEDICATION INSTRUCTIONS. dd2 03:38 Arm band placed on right wrist. dd2 Administered Medications: No medications were administered Medication: 02:16 VIS not applicable for this client. dd2 Outcome: 03:31 Discharge ordered by . rt 03:37 Discharged to home ambulatory, dd2 03:37 Condition: stable 03:37 Discharge instructions given to patient, Instructed on discharge instructions, follow up and referral plans. medication usage, Demonstrated understanding of instructions, follow-up care, medications, Prescriptions given X 1, 03:38 Patient left the ED. dd2 Signatures: Lara Priest RN RN ha1 Bertram Granados MD MD rt Nancy Ramos gm2 Alejandra Harris vk JUTSIN, LOLITA, RN RN dd2
--- NOTE | 2024-09-25 03:31 | EDPHYS ---
Physician Documentation [facility] Name: Cem Foley Age: 59 yrs Sex: Male : 1965 Arrival Date: 09/25/2024 Time: 01:33 Bed 7 Private MD: ED Physician Bertram Granados HPI: 09/25 03:45 This 59 yrs old Male presents to ER via Ambulatory with complaints of Urinary Problem, rt Blood in urine. 03:45 Patient presents to the ED with gross hematuria starting tonight. Patient states that rt he passed a small amount of clots. Denies any pain to the abdomen, flanks. States that he is able to empty his bladder completely. Denies other acute complaints at this time, symptoms are moderate in severity, no other aggravating or alleviating factors.. Historical: - Allergies: :42 No Known Allergies; ha1 - Home Meds: :42 Flomax Oral [Active]; ha1 - PMHx: :42 Hypertensive disorder; ENLARGE PROSTATE; ha1 - PSHx: :42 None; ha1 - Immunization history:: Adult Immunizations up to date. - Infectious Disease History:: Denies. - Social history:: Smoking status: Patient reports the use of cigarette tobacco products, denies chronic smoking, but will smoke occasionally. - Family history:: not pertinent. ROS: 03:45 Constitutional: Negative for fever, chills, and weight loss, Cardiovascular: Negative rt for chest pain, palpitations, and edema, Respiratory: Negative for shortness of breath, cough, wheezing, and pleuritic chest pain, Abdomen/GI: Negative for abdominal pain, nausea, vomiting, diarrhea, and constipation, Skin: Negative for injury, rash, and discoloration, Neuro: Negative for headache, weakness, numbness, tingling, and seizure, 03:45 : Positive for hematuria, Negative for burning with urination, Exam: 03:45 Constitutional: This is a well developed, well nourished patient who is awake, alert, rt and in no acute distress. Head/Face: Normocephalic, atraumatic. Chest/axilla: Normal chest wall appearance and motion. Nontender with no deformity. No lesions are appreciated. Cardiovascular: Regular rate and rhythm with a normal S1 and S2. No gallops, murmurs, or rubs. Normal PMI, no JVD. No pulse deficits. Respiratory: Lungs have equal breath sounds bilaterally, clear to auscultation and percussion. No rales, rhonchi or wheezes noted. No increased work of breathing, no retractions or nasal flaring. Abdomen/GI: Soft, non-tender, with normal bowel sounds. No distension or tympany. No guarding or rebound. No evidence of tenderness throughout. Skin: Warm, dry with normal turgor. Normal color with no rashes, no lesions, and no evidence of cellulitis. MS/ Extremity: Pulses equal, no cyanosis. Neurovascular intact. Full, normal range of motion. Neuro: Awake and alert, GCS 15, oriented to person, place, time, and situation. Cranial nerves II-XII grossly intact. Motor strength 5/5 in all extremities. Sensory grossly intact. Cerebellar exam normal. Normal gait. Vital Signs: 01:42 BP 161 / 100; Pulse 80; Resp 16 S; Temp 98.1(O); Pulse Ox 100% on R/A; Weight 74.84 kg; ha1 Height 5 ft. 9 in. ; 02:30 BP 141 / 94; Pulse 83; Resp 16; Pulse Ox 100% on R/A; dd2 03:37 BP 146 / 87; Pulse 81; Resp 17; Temp 98.3; Pulse Ox 99% on R/A; dd2 01:42 Body Mass Index 24.37 (74.84 kg, 175.26 cm) ha1 Bo Coma Score: 02:16 Eye Response: spontaneous(4). Motor Response: obeys commands(6). Verbal Response: dd2 oriented(5). Total: 15. MDM: 01:54 Medical Screening Exam initiated rt 03:45 Differential Diagnosis Gross hematuria, hemorrhagic cystitis. Data reviewed: vital rt signs, nurses notes, lab test result(s). Test considered but Not performed: CT: Denies any abdominal complaint pain, urinary retention, do not believe that CT scan is indicated at this time.. Care significantly affected by the following chronic conditions: Hypertension. Counseling: I had a detailed discussion with the patient and/or guardian regarding the historical points, exam findings, and any diagnostic results supporting the discharge/admit diagnosis, lab results, the need for outpatient follow up, to return to the emergency department if symptoms worsen or persist or if there are any questions or concerns that arise at home. Response to treatment: the patient's symptoms have markedly improved after treatment. 09/25 02:00 Order name: UAM; Complete Time: 03:02 rt 09/25 02:00 Order name: CMP; Complete Time: 03:02 rt 09/25 02:00 Order name: CBC with Diff; Complete Time: 03:02 rt Administered Medications: No medications were administered Disposition Summary: 09/25/24 03:31 Discharge Ordered Notes: Location: Home rt Problem: new rt Symptoms: have improved rt Condition: Stable rt Diagnosis - Gross hematuria rt Followup: rt - With: Private Physician - When: 2 - 3 days - Reason: Discharge Instructions: - Discharge Summary Sheet rt - Hematuria, Adult rt Forms: - Medication Reconciliation Form rt - Antibiotic Education rt - Prescription Opioid Use rt - Patient Portal Instructions rt - Leadership Thank You Letter rt Prescriptions: - cefpodoxime 200 mg Oral tablet - take 1 tablet ORAL route every 12 hours with food; 14 tablet; Refills: 0, rt Product Selection Permitted Signatures: Dispatcher [employer] Lara Moreno, RN RN ha1 Bertram Granados MD MD rt
[2024-09-27 01:54] VITALS: BP 146/87; TEMP 98.3; O2SAT 99
== END 2024-09-25 03:38 | disposition home or self-care (01) ==
LOC: ER 01:33
DX: R31.0 Gross hematuria (principal); F17.210 Nicotine dependence, cigarettes, uncomplicated
CPT/HCPCS: 36415; 80053; 81001; 85025; 99284